=== PATIENT | male | born 1955 | race Caucasian/White ===

== ENCOUNTER 2024-05-22 05:04 | Day surgery (SDC) | payer OTHER ==
[2024-05-22] VITALS (199 sets, daily range): BP systolic 90–153; BP diastolic 44–84
[~2024-05-22 05:04] MED LIST: SODIUM CHLORIDE 0.9% 1,000 ML IV PRN
[2024-05-22] MEDS ORDERED: FAMOTIDINE 20 MG/TAB PO PRN (07:30)
[2024-05-22] MEDS ORDERED: ALBUTEROL SULFATE 2.5 MG VIAL IN PRN (07:30)
[2024-05-22] MEDS ORDERED: LACTATED RINGER'S 1,000 ML IV PRN ×2 (07:30→10:45)
[2024-05-22] MEDS ORDERED: diazePAM 5 MG/TAB PO PRN ×2 (07:30→08:30)
[2024-05-22] MEDS ORDERED: CYANOCOBALAMIN 500 MCG/TAB ( B12) PO PRN (07:30)
[2024-05-22] MEDS ORDERED: SCOPOLAMINE 1.5 MG DIS TD PRN (07:30)
[2024-05-22] MEDS ORDERED: cloNIDine HCL 0.1 MG/TAB PO PRN (07:30)
[2024-05-22] MEDS ORDERED: PANTOPRAZOLE SODIUM Sesquihydr 40 MG/TAB PO PRN (07:30)
[2024-05-22] MEDS ORDERED: DEXMEDETOMIDINE HCL IN SODIUM 100 ML IV SCH (07:40)
[2024-05-22] MEDS ORDERED: LEVOTHYROXIN150 MC1 PO (07:59)
[2024-05-22] MEDS ORDERED: LANSOPRAZOLE30 MG PO (07:59)
[2024-05-22] MEDS ORDERED: FOLIC ACID1 MG PO (08:00)
[2024-05-22] MEDS ORDERED: ASCORBIC ACID 4,000 MG in SODIUM CHLORIDE 0.9% 1,000 ML IV SCH (08:00)
[2024-05-22] MEDS ORDERED: LOPRESSOR25 M1 PO (08:00)
[2024-05-22] MEDS ORDERED: CIALIS20 MG PO (08:01)
[2024-05-22] MEDS ORDERED: COZAAR50 MG PO (08:02)
[2024-05-22] MEDS ORDERED: CRESTOR20 MG PO (08:02)
[2024-05-22] MEDS ORDERED: TAMSULOSIN0.4 MG PO (08:03)
[2024-05-22] MEDS ORDERED: METHOTREXATE S2.5 MG PO (08:04)
[2024-05-22] MEDS ORDERED: ENBREL50 MG/ML SC (08:05)
[2024-05-22 08:13] LABS: BASO% 0.8 % (0-3); EOS% 2.4 % (0-8); HEMATOCRIT 31.1 % (39.0-50.0); HEMOGLOBIN 10.1 g/dl (14.0-18.0); MEAN CORPUSCULAR HGB 32.2 pG CALC (26.0-32.0); MEAN CORPUSCULAR HGB CONC 32.5 g/dL CAL (32.0-36.0); MONO% 14.4 % (2-13); NEUT# 2.53 thou/uL (1.82-7.42); NEUT% 51.4 % (42-76); RED BLOOD COUNT 3.14 mill/uL (4.70-6.10); RED CELL DISTRI WIDTH 13.2 % (11.5-15.5)
[2024-05-22 08:39] LABS: ALBUMIN 3.7 g/dL (3.2-5.0); BILIRUBIN, TOTAL 0.3 mg/dL (0.2-1.3); POTASSIUM 4.4 mmol/l (3.5-5.1)
[2024-05-22] MEDS ORDERED: LIDOCAINE HCL 1% (10MG/ML) 100 MG/10 ML MDV VT PRN ×2 (10:45)
[2024-05-22] MEDS ORDERED: ONDANSETRON HCl 4 MG/2 ML SDV IV PRN ×3 (10:45→19:00)
[2024-05-22] MEDS ORDERED: LIDOCAINE HCL 1% (10MG/ML) 100 MG/10 ML MDV IV PRN (10:45)
[2024-05-22] MEDS ORDERED: THIAMINE HCL 100 MG/ML 2ML VIAL IV PRN (10:45)
[2024-05-22] MEDS ORDERED: diazePAM 5 MG/TAB VT PRN (10:45)
[2024-05-22] MEDS ORDERED: POTASSIUM CHLORIDE 20 MEQ/100 ML BAG IV PRN (10:45)
[2024-05-22] MEDS ORDERED: DiphenhydrAMINE HCL 50 MG/ML SDV IV PRN (10:45)
[2024-05-22] MEDS ORDERED: ROCURONIUM BROMIDE 10 MG/ML 5 ML VIAL IV PRN (10:45)
[2024-05-22] MEDS ORDERED: OCTREOTIDE ACETATE 100 MCG/VIAL SDV SC PRN (10:45)
[2024-05-22] MEDS ORDERED: MAGNESIUM SULFATE HEPTAHYDRATE 100 ML IV PRN (10:45)
[2024-05-22] MEDS ORDERED: PROPOFOL 100 ML IV PRN (10:45)
[2024-05-22] MEDS ORDERED: cloNIDine HCL 0.1 MG/TAB VT PRN (10:45)
[2024-05-22] MEDS ORDERED: STERILE WATER FOR IRRIGATION 1,000 ML BTL IR PRN (10:45)
[2024-05-22] MEDS ORDERED: MIDAZOLAM HCL 2 MG/2 ML VIAL IV PRN ×3 (10:45→14:15)
[2024-05-22] MEDS ORDERED: PROPOFOL 10 MG/ML 100ML VIAL IV PRN (10:45)
[2024-05-22] MEDS ORDERED: cloNIDine HYDROCHLORIDE 100 MCG/ML 10 ML INJ IV PRN (10:45)
[2024-05-22] MEDS ORDERED: SUCCINYLCHOLINE CHLORIDE 20 MG/ML 10ML VIAL IV PRN (10:45)
[2024-05-22] MEDS ORDERED: NALTREXONE HCL 50 MG/TAB VT PRN (10:45)
[2024-05-22] MEDS ORDERED: SODIUM CHLORIDE 0.9% 1,000 ML IV PRN ×2 (10:50→14:10)
[2024-05-22] MEDS ORDERED: hydrALAZINE HCL 20 MG/ML VIAL(1 ML) IV SCH (15:00)
[2024-05-22] MEDS ORDERED: ACETAMINOPHEN 1,000 MG/100 ML VIAL IV SCH (17:30)
[2024-05-22] MEDS ORDERED: KETOROLAC TROMETHAMINE 30 MG/ML SDV IV SCH (17:30)
[2024-05-22] MEDS ORDERED: LIDOCAINE HCL 1% (10MG/ML) 100 MG/10 ML MDV IV SCH (17:30)
[2024-05-22] MEDS ORDERED: CLONIDINE0.1 MG PO (17:47)
[2024-05-22] MEDS ORDERED: KLONOPIN2 MG PO (17:47)
[2024-05-22] MEDS ORDERED: NALTREXONE50 MG PO (17:47)
[2024-05-22] MEDS ORDERED: METHOCARBAMOL 500 MG/TAB PO PRN (18:00)
[2024-05-22] MEDS ORDERED: PROMETHAZINE HCL 12.5 MG in SODIUM CHLORIDE 0.9% 50 ML IV PRN (19:00)
[2024-05-22] MEDS ORDERED: LORazepam 2 MG/ML IV PRN ×2 (19:00)
[2024-05-22] MEDS ORDERED: ACETAMINOPHEN 500 MG TAB PO PRN (19:00)
[2024-05-22] MEDS ORDERED: HALOPERIDOL LACTATE 5 MG/ML SDV IV PRN (19:00)
[2024-05-22] MEDS ORDERED: KETOROLAC TROMETHAMINE 30 MG/ML SDV IV PRN (19:00)
[2024-05-22] MEDS ORDERED: ACETAMINOPHEN 1,000 MG/100 ML VIAL IV PRN (19:00)
[2024-05-22] MEDS ORDERED: PROMETHAZINE HCL 25 MG in SODIUM CHLORIDE 0.9% 50 ML IV PRN (19:00)
[2024-05-22] MEDS ORDERED: TAMSULOSIN HCL 0.4 MG CAP PO SCH (21:00)
[2024-05-22] MEDS ORDERED: PATIENT' OWN MED CONTROLLED 1 EA DOSE IV PRN (21:00)
[2024-05-22] MEDS ORDERED: ATORVASTATIN CALCIUM 40 MG/TAB PO SCH (21:00)
[2024-05-22] MEDS ORDERED: METOPROLOL TARTRATE 25 MG/TAB PO SCH (21:00)
[2024-05-22] MEDS ORDERED: LOSARTAN Potassium 50 MG/TAB PO SCH (21:00)
[2024-05-22] MEDS ORDERED: clonazePAM 1 MG/TAB PO PRN (23:00)
[2024-05-22] MEDS ORDERED: cloNIDine HCL 0.1 MG/TAB PO SCH (23:00)
[2024-05-23 02:49] VITALS: BP 140/58
[2024-05-23] MEDS ORDERED: cloNIDine HCL 0.1 MG/TAB PO PRN (04:00)
[2024-05-23] MEDS ORDERED: clonazePAM 1 MG/TAB PO PRN ×2 (04:00→08:00)
[2024-05-23] MEDS ORDERED: NALTREXONE HCL 50 MG/TAB PO SCH (04:00)
[2024-05-23 05:52] LABS: BASO% 0.2 % (0-3); HEMATOCRIT 31.4 % (39.0-50.0); HEMOGLOBIN 10.5 g/dl (14.0-18.0); LYMPH% 8.7 % (15-41); MEAN CELL VOLUME 98.1 fL CALC (80.0-100.0); MEAN CORPUSCULAR HGB 32.8 pG CALC (26.0-32.0); MEAN CORPUSCULAR HGB CONC 33.4 g/dL CAL (32.0-36.0); MONO% 1.8 % (2-13); NEUT# 4.01 thou/uL (1.82-7.42); NEUT% 89.3 % (42-76); RED BLOOD COUNT 3.2 mill/uL (4.70-6.10)
[2024-05-23 05:58] LABS: ALBUMIN 3.3 g/dL (3.2-5.0); BILIRUBIN, TOTAL 0.4 mg/dL (0.2-1.3); CREATININE 1.1 mg/dL (0.7-1.3); TOTAL PROTEIN 5.7 g/dL (6.3-8.2)
[2024-05-23 05:59] LABS: POTASSIUM 5.2 mmol/l (3.5-5.1)
[2024-05-23] MEDS ORDERED: LEVOTHYROXINE SODIUM 75 MCG/TAB PO SCH (06:00)
[2024-05-23 07:40] VITALS: BP 140/58; BP 146/64
[2024-05-23] MEDS ORDERED: PANTOPRAZOLE SODIUM Sesquihydr 40 MG/TAB PO SCH (08:00)
[2024-05-23] MEDS ORDERED: ACETAMINOPHEN 325 MG/TAB PO SCH (08:00)
[2024-05-23] MEDS ORDERED: cloNIDine HCL 0.1 MG/TAB PO SCH (08:00)
[2024-05-23] MEDS ORDERED: ACETAMINOPHEN 500 MG TAB PO PRN (09:00)
[2024-05-23] MEDS ORDERED: FOLIC ACID 1 MG/TAB PO SCH (09:00)
[2024-05-23] MEDS ORDERED: Cholecalciferol 2,000 UNIT/TAB PO PRN (09:00)
[2024-05-23] MEDS ORDERED: MAGNESIUM OXIDE 400 MG/TAB PO PRN (09:00)
== END 2024-05-23 15:17 | disposition home or self-care (01) | DRG 897 ==
LOC: ANR 05:04 → MS2 05:04 → ANR 08:00 → MS2 18:17 → ANR 05-23 15:17
PROVIDERS: ATTEND Anesthesiology Critical Care Medicine
DX: F11.20 Opioid dependence, uncomplicated (principal)
CPT/HCPCS: J0131; J0360; J0735; J1100; J1200; J2354; J2405; J2704; J3411; J3475; J3480; J3490